=== PATIENT | male | born 1985 | race African-American/Black ===

== ENCOUNTER 2016-04-30 15:35 | Emergency (ER) | payer MEDICAID ==
[~2016-04-30] VITALS: Ht 175.3 cm; Wt 102.1 kg
[2016-04-30 15:53] VITALS: BP 125/82
== END 2016-04-30 19:51 | disposition home or self-care (01) ==
LOC: ER 15:43
DX: S46.911A Strain of unspecified muscle, fascia and tendon at shoulder and upper arm level, right arm, initial encounter (principal); J20.9 Acute bronchitis, unspecified; X58.XXXA Exposure to other specified factors, initial encounter; Y93.89 Activity, other specified; Y92.89 Other specified places as the place of occurrence of the external cause; Y99.8 Other external cause status